=== PATIENT | female | born 1990 | race Hispanic/Latino ===

== ENCOUNTER 2022-06-04 19:30 | Inpatient (IN) | payer BC ==
[2022-06-04] MEDS ORDERED: Promethazine HCl 25 MG/ML VIAL IM PRN (22:51)
[2022-06-04] MEDS ORDERED: Fentanyl 100 MCG/2 ML VIAL SLOW IVP PRN (22:51)
[2022-06-04] MEDS ORDERED: Carboprost 250 MCG/ML AMP IM PRN (22:51)
[2022-06-04] MEDS ORDERED: Ibuprofen 800 MG TAB PO PRN (22:51)
[2022-06-04] MEDS ORDERED: Misoprostol 200 MCG TAB PR PRN (22:51)
[2022-06-04] MEDS ORDERED: Lidocaine 1% (PF) 30 ML VIAL SC PRN (22:51)
[2022-06-04] MEDS ORDERED: Tranexamic Acid 1,000 MG/10 ML VIAL IVP PRN (22:51)
[2022-06-04] MEDS ORDERED: hydrALAZINE 20 MG/ML VIAL SLOW IVP PRN (22:51)
[2022-06-04] MEDS ORDERED: Acetaminophen 500 MG TAB PO PRN (22:51)
[2022-06-04] MEDS ORDERED: Methylergonovine 0.2 MG/ML VIAL IM PRN (22:51)
[2022-06-04] MEDS ORDERED: Ondansetron PF 4 MG/2 ML Vial IVP PRN (22:51)
[2022-06-04 22:59] VITALS: BMI 42.0
[2022-06-04] MEDS ORDERED: Penicillin G Potassium 5 MILL.UNITS in Sodium Chloride 0.9% 100 ML IVPB SCH (23:00)
[2022-06-04] MEDS ORDERED: NS w/ Oxytocin 30 units 500 ML IV SCH ×2 (23:00)
[2022-06-04] MEDS: Lactated Ringer's 1,000 ML IV SCH (23:14)
[2022-06-04] MEDS: Misoprostol 100 MCG TAB VAG SCH (23:15)
[2022-06-04 23:22] LABS: Hemoglobin 11.5 g/dL (12.0-15.5); Mean Corpuscular HGB CONC 32.8 g/dL (32.0-36.0); Mean Corpuscular Hemoglobin 30.7 pg (27.0-33.0); Mean Corpuscular Volume 93.9 fl (81.6-98.3); Mean Platelet Volume 10.8 fl (7.4-10.4); Platelet Count 196 10x3/uL (150-450); RBC Distribution Width 14.4 % (11.5-14.5); Red Blood Cell (RBC) Count 3.74 10x6/uL (3.90-5.03); White Blood Cell (WBC) Count 9.4 10x3/uL (3.5-10.5)
[2022-06-04 23:54] LABS: Syphilis Antibody Nonreactive (Nonreactive); Syphilis Antibody Index 0.04 S/CO (<1.00 Non-Reactive)
[2022-06-04 23:55] LABS: HBSAg Index 0.18 S/CO (0-0.99); Hep B Surf Ag - L&D Non-Reactive S/CO (NonReactive)
[2022-06-05] MEDS: Misoprostol 100 MCG TAB VAG SCH ×4 (02:40→17:46)
[2022-06-05] MEDS: Penicillin G 2.5 MILL.units 2.5 MILL.UNITS in Premix Bag 1 BAG IVPB SCH ×4 (02:41→17:47)
[2022-06-05] MEDS ORDERED: Bupivacaine 0.25% HCL 30 ML VIAL ONE (08:00)
[2022-06-05] MEDS ORDERED: Fentanyl 2 mcg/Bup 0.1% Cadd 100 ML ONE (10:23)
[2022-06-05] MEDS: Lactated Ringer's 1,000 ML IV SCH ×2 (11:14→17:47)
[2022-06-05] MEDS ORDERED: Methylergonovine 0.2 MG/ML VIAL ONE (13:17)
[2022-06-05] MEDS ORDERED: Benzocaine-Menthol 82.5 ML CAN TOP PRN (15:47)
[2022-06-05] MEDS ORDERED: Bisacodyl 10 MG SUPP PR PRN (15:47)
[2022-06-05] MEDS ORDERED: hydrALAZINE 20 MG/ML VIAL SLOW IVP PRN (15:47)
[2022-06-05] MEDS ORDERED: Promethazine HCl 25 MG/ML VIAL IM PRN (15:47)
[2022-06-05] MEDS ORDERED: HYDROcodone/Acetaminophen 5/325 mg Tablet PO PRN ×2 (15:47)
[2022-06-05] MEDS ORDERED: Preparation H Ointment 28 GM TUBE PR PRN (15:47)
[2022-06-05] MEDS ORDERED: Milk Of Magnesia 30 ML UDCUP PO PRN (15:47)
[2022-06-05] MEDS ORDERED: Lanolin Ointment 7 GM TUBE TOP PRN (15:47)
[2022-06-05] MEDS ORDERED: diphenhydrAMINE 25 MG CAP PO PRN (15:47)
[2022-06-05] MEDS ORDERED: Boostrix 0.5 ML (Tdap) VIAL (>/=7 yrs of age) IM ONE (15:47)
[2022-06-05] MEDS ORDERED: Ondansetron PF 4 MG/2 ML Vial IVP PRN (15:47)
[2022-06-05] MEDS ORDERED: Ferrous Sulfate 325 MG TAB PO SCH (17:00)
[2022-06-05] MEDS: Ibuprofen 800 MG TAB PO SCH ×2 (17:46→19:41)
[2022-06-06] MEDS: Docusate 100 MG CAP PO SCH ×2 (00:11→08:00)
[2022-06-06] MEDS: Ibuprofen 800 MG TAB PO SCH ×2 (04:26→13:10)
[2022-06-06] MEDS ORDERED: Prenatal Vitamin 1 TAB PO SCH (09:00)
[2022-06-06 11:14] VITALS: BP 129/68; TEMP 98.8
== END 2022-06-06 15:50 | disposition home or self-care (01) | DRG 807 ==
LOC: CSHLD 21:42 → CSHPP 06-05 16:45
PROVIDERS: ADMIT Student in an Organized Health Care Education/Training Program; ATTEND Student in an Organized Health Care Education/Training Program
PROC: 10E0XZZ Delivery of Products of Conception, External Approach (ICD-10-PCS; principal; 2022-06-05)
PROC: 10907ZC Drainage of Amniotic Fluid, Therapeutic from Products of Conception, Via Natural or Artificial Opening (ICD-10-PCS; 2022-06-05)
DX: O48.0 Post-term pregnancy (principal); Z37.0 Single live birth; O99.824 Streptococcus B carrier state complicating childbirth; Z3A.40 40 weeks gestation of pregnancy
CPT/HCPCS: 36415; 51702; 85027; 86780; 86850; 86900; 86901; 87340; J2540; J2590; J3490; J7120; S0020